=== PATIENT | female | born 1965 | race Caucasian/White ===

== ENCOUNTER 2016-05-28 12:06 | Day surgery (SDC) | payer OTHER ==
[2016-05-18 15:18] VITALS: BMI 23.7
[2016-05-28] MEDS ORDERED: VASOPRESSIN 20 UNITS/ML VIAL IV ONE (13:31)
[2016-05-28] MEDS ORDERED: KETOROLAC TROMETHAMINE 30 MG/1 ML VIAL ONE (14:03)
[2016-05-28] MEDS ORDERED: DEXAMETHASONE SOD PHOSPHATE 4 MG/1 ML VIAL ONE (14:03)
[2016-05-28] MEDS ORDERED: PROPOFOL 20 ML ONE (14:04)
[2016-05-28] MEDS ORDERED: MIDAZOLAM HCL 2 MG/2 ML SINGLE DOSE VIAL ONE (14:04)
[2016-05-28] MEDS ORDERED: CLINDAMYCIN 600 MG PREMIX BAG IVPB ONE (14:25)
[2016-05-28] MEDS ORDERED: ePHEDrine SULFATE 50 MG/1 ML AMPULE ONE (14:44)
--- NOTE | 2016-05-28 15:08 | HP ---
History & Physical Update - History History: No Change - Physical Physical: No Change - Assessment Assessment: No Change - Plan Plan: No Change
[2016-05-28] MEDS ORDERED: ACETAMINOPHEN 1000 MG/100 ML VIAL (NON FORMULARY) IVPB ONE (15:09)
[2016-05-28] MEDS ORDERED: DEXTROSE 5%-0.45% SALINE 1,000 ML IV SCH (15:15)
[2016-05-28 16:32] LABS: BASOPHIL 0.3 % (0-2.0); EOSINOPHIL 0.5 % (0-4.5); MCH 30.7 pg (25.7-33.7); MEAN CELL VOLUME 90.4 fl (80-96); MEAN PLT VOLUME 7.8 fl (7.5-11.1); NEUTROPHILS 75.8 % (42.8-82.8); PLATELET COUNT 198 K/MM3 (134-434); RDW 13.5 % (11.6-15.6); WHITE BLOOD COUNT 6.3 K/mm3 (4.0-10.0)
[2016-05-28 17:10] LABS: CALCIUM 8.7 mg/dL (8.5-10.1); CREATININE 0.7 mg/dL (0.55-1.02)
[2016-05-28 17:52] VITALS: TEMP 98
[2016-05-28 18:34] VITALS: BP 101/58; PULSE 71
--- NOTE | 2016-05-29 07:09 | OP ---
DATE OF OPERATION: 05/28/2016 PREOPERATIVE DIAGNOSIS: Stress urinary incontinence, hypermobile urethra. POSTOPERATIVE DIAGNOSIS: Stress urinary incontinence, hypermobile urethra. PROCEDURE: Suburethral sling placement and cystoscopy. ANESTHESIOLOGIST: Viktor Tyson MD SURGEON: Salvador Pace MD ESTIMATED BLOOD LOSS: 50 mL. FINDINGS: Normal bladder. DRAINS: Vee catheter. PREOPERATIVE INDICATIONS: The patient is 51-year-old female with classic stress urinary incontinence secondary to hypermobile urethra. She has incontinence with exercise, which is affecting negatively her quality of life. She comes for suburethral sling placement. Risks, benefits, and alternatives were discussed with the patient. OPERATION: The patient was brought to the OR, placed on the table in the supine position, given general anesthesia and IV antibiotics, and placed in the modified lithotomy position. The groin was prepped and draped sterilely. Time-out was performed. Vee catheter was placed. The middle third of the urethra was marked with a marking pen. Putrescin was injected underneath the vaginal mucosa. An incision was made over the middle third of the vaginal mucosa. The vaginal mucosa was then sharply dissected over the periurethral tissues in a lateral fashion. This was done back to the endopelvic fascia. Bladder was emptied under suction. A sling was then placed using trocars, first on the right side under fingertip control through the fascia towards the obturator canal. This was done on the left side similarly under fingertip control towards the obturator canal of the foramen. Cystoscopy was then performed, which revealed no perforation of the bladder. The sling was appropriately tightened, and excess suture was removed. Vee catheter was replaced, and 3-0 Vicryl suture was used to close the vaginal mucosa. At this point, good hemostasis was observed. A vaginal packing and Vee catheter were left in place. The patient was woken up. Justen [id number]
== END 2016-05-28 18:34 | disposition home or self-care (01) ==
LOC: JASU-SURG 12:06
PROVIDERS: ATTEND Urology
PROC: 0TSD0ZZ Reposition Urethra, Open Approach (ICD-10-PCS; principal; 2016-05-28 13:30)
DX: N39.3 Stress incontinence (female) (male) (principal); N36.41 Hypermobility of urethra
CPT/HCPCS: 36415; 80048; 84703; 85025; 94760